=== PATIENT | female | born 1960 | race Caucasian/White ===

== ENCOUNTER 2021-05-18 11:56 | Day surgery (SDC) | payer OTHER ==
[~2021-05-18] VITALS: Ht 175.3 cm; Wt 72.7 kg
[~2021-05-18 11:56] MED LIST: DAILY VALUE1 EACH PO; FISH OIL 1,0001 EAC2 NG; GABAPENTIN600 MG PO; LIPITOR20 MG PO; MAGNESIUM30 MG; PERCOCET 5-3251 EACH PO; REMERON15 MG PO; TRIPLE HELIX CO10 GM TOP
--- NOTE | 2021-05-18 13:53 | NUR ---
05/18/21 1352 Jeanette Grajeda 1344-PATIENT ARRIVED TO PACU ON 2L NC RR EVEN LAYING LEFT LATERAL. PATIENT AWAKE DROWSY DENIES PAIN OR NAUSEA. ABDOMEN SOFT. PATIENT DOZES BACK TO SLEEP. ENCOURAGED TO PASS GAS
--- NOTE | 2021-05-28 10:35 | OR ---
[facility] [address] [place], [place] [address] Signed DATE OF OPERATION: 05/18/2021 SURGEON: Lalo Pennington MD PREOPERATIVE DIAGNOSES: 1. Family history of colon cancer (father and 3 paternal aunts and uncles). 2. Known history of diverticulosis on colonoscopy in 2009. POSTOPERATIVE DIAGNOSES: 1. Pandiverticulosis. 2. Minimal internal hemorrhoidal changes. PROCEDURE: Total colonoscopy to cecum. ANESTHESIA: Intravenous sedation; fentanyl 150 mcg and Versed 5 mg. INDICATION: This 60-year-old white woman is a patient of NIDA Cagle and known to me from the past having undergone colonoscopy in 2009, which was negative except for diverticulosis. She has a family history of colon cancer in her father as well as 3 of her father's siblings (aunts and uncles). Her children have had polyps and on her maternal side, there is history of colon cancer. It is believed as well. The patient is currently symptom free, having no bleeding, diarrhea, or constipation. She is admitted to undergo surveillance colonoscopy and understand the risks of bleeding, infection, and perforation. FINDINGS: The prep was excellent. Complete colonoscopy was undertaken to the cecum without question. Good visualization of the ileocecal valve and appendiceal orifice was noted. There were numerous diverticula scattered throughout the colon most dominantly in the sigmoid and left colon extending all the way to the right colon as well. Retroflexed view did confirm internal hemorrhoidal changes, but this was not very significant otherwise. DESCRIPTION OF PROCEDURE: The patient was brought to the endoscopy suite and placed in lateral decubitus position, given intravenous sedation to the point of slurred speech and nystagmus. Full cardiopulmonary monitoring was maintained. Digital rectal examination was normal. Electronically Signed By: LALO PENNINGTON MD 05/28/21 1035 PATIENT NAME: DASH PLUMMER OPERATIVE REPORT DATE OF : 60 REPORT #: [id number] PHYSICIAN: LALO PENNINGTON MD PCP: DIONE HDZ PA-C REPORT IS CONFIDENTIAL AND NOT TO BE RELEASED WITHOUT AUTHORIZATION [facility] [address] [place] [id number] Signed An Olympus video colonoscope was passed in the rectum and manipulated throughout the colon ultimately intubating the cecum. The ileocecal valve and appendiceal orifice were normal. Scope was withdrawn from that point. Examination was undertaken showing diverticula, scattered from the right colon through the remaining colon on withdrawal of the scope. There was no evidence of polyps, cancer, or colitis. Retroflexed view showed some low-grade internal hemorrhoidal changes. The scope was straightened, withdrawn, and removed and the patient was taken to the recovery room in good condition. CONCLUDING DIAGNOSIS: Diverticulosis throughout colon. No evidence of polyps. PLAN: Recommend repeat colonoscopy in 5 years based on family history of colon cancer in first-degree relatives. We would recommend high-fiber diet generally speaking otherwise. MD BENNIE Love/BACILIO /[id number] cc: NIDA Cagle Copies: ~ Electronically Signed By: LALO PENNINGTON MD 05/28/21 1035 PATIENT NAME: DASH PLUMMER OPERATIVE REPORT DATE OF : 60 REPORT #: [id number] PHYSICIAN: LALO PENNINGTON MD PCP: DIONE HDZ PA-C REPORT IS CONFIDENTIAL AND NOT TO BE RELEASED WITHOUT AUTHORIZATION
== END 2021-05-18 14:23 | disposition home or self-care (01) ==
LOC: DS 11:56 → OPS 11:56 → DS 14:00 → OPS 14:23
PROVIDERS: ATTEND Surgery
PROC: 0DJD8ZZ Inspection of Lower Intestinal Tract, Via Natural or Artificial Opening Endoscopic (ICD-10-PCS; principal; 2021-05-18 14:00)
DX: Z12.11 Encounter for screening for malignant neoplasm of colon (principal); K57.30 Diverticulosis of large intestine without perforation or abscess without bleeding; K64.8 Other hemorrhoids; E78.5 Hyperlipidemia, unspecified; Z87.891 Personal history of nicotine dependence; Z80.0 Family history of malignant neoplasm of digestive organs; Z86.59 Personal history of other mental and behavioral disorders; Z90.49 Acquired absence of other specified parts of digestive tract; Z78.0 Asymptomatic menopausal state
CPT/HCPCS: 99153; G0500; J2250; J2704; J3010; J7121

== ENCOUNTER 2022-01-11 12:15 | Emergency (ER) | payer OTHER ==
[~2022-01-11] VITALS: Ht 175.3 cm; Wt 72.6 kg
--- OUTSIDE RECORDS SUMMARY | 2022-01-11 12:18 | XMS ---
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 EJeremy VISIT COUNT (12 MO.) 1 VALERIY Baird TOTAL 1 NOTE: Visits indicate total known visits. ED/UCC VISIT TRACKING (12 MO.) 01/11/2022 12:16 VALERIY Deras OR TYPE: Emergency COMPLAINT: - FLANK PAIN INPATIENT VISIT TRACKING (12 MO.) No inpatient visits to display in this time frame [email or web address]
[2022-01-11] MEDS ORDERED: ONDANSETRON ODT8 MG PO (14:57)
[2022-01-11] MEDS ORDERED: HYDROCODON-ACE1 EA11 PO (14:57)
[2022-01-11] MEDS ORDERED: FLOMAX0.4 MG PO (14:57)
== END 2022-01-11 15:05 | disposition home or self-care (01) ==
LOC: ED 12:15
DX: N13.2 Hydronephrosis with renal and ureteral calculous obstruction (principal); Z88.7 Allergy status to serum and vaccine; Z79.899 Other long term (current) drug therapy
CPT/HCPCS: 36415; 74176; 80048; 81001; 85025; 96374; 96375; 99284-25; J1885; J2405; J7030

== ENCOUNTER 2022-01-17 11:11 | Day surgery (SDC) | payer OTHER ==
[~2022-01-17] VITALS: Ht 175.3 cm; Wt 86.0 kg
[~2022-01-17 11:11] MED LIST changes: +FLOMAX0.4 MG PO; +HYDROCODON-ACE1 EA11 PO; +ONDANSETRON ODT8 MG PO
--- NOTE | 2022-01-17 12:00 | NUR ---
PATIENT RESTING BACK IN BED. SUSHMA JACOBS PROVIDED PATIENT WITH HEATED BLANKETS. NO OTHER NEEDS AT THIS TIME.
--- NOTE | 2022-01-17 14:00 | NUR ---
PATIENT UP TO BATHROOM. NO OTHER NEEDS AT THIS TIME
--- NOTE | 2022-01-17 15:00 | NUR ---
PATIENT RESTING BACK IN BED READING BOOK. NOTIFIED PATIENT WOULD BE GOING BACK TO SURGERY SOON.
--- NOTE | 2022-01-17 16:28 | NUR ---
01/17/22 1628 Margie Roberson 1626- PT TO PACU IN SUPINE POSITION EYES CLOSED WITH ORAL AIRWAY IN PLACE. BREATHING EASY AND UNLABORED. SPO2 >95% ON 10L O2 VIA SIMPLE MASK.
--- NOTE | 2022-01-17 17:00 | NUR ---
PATIENT BACK TO ROOM FROM PACU, REPORT FROM ADAMARIS JACOBS. PATIENT UP TO BATHROOM VOIDED 250 ML OF URINE. PATIENT BACK TO ROOM. STRING INTACT FOR STENT. PATIENT REPORTS PAIN 0/10 ON PAIN SCALE. DISCUSSED CRITERIA WITH PATIENT, AND . PROVIDED SCRIPT TO TO FILL. NO OTHER NEEDS AT THIS TIME.
--- NOTE | 2022-01-17 18:00 | NUR ---
PROVIDED DISCHARGE EDUCATION TO PATIENT, ANSWERED QUESTIONS AND CONCERNS. AT BEDSIDE. ANSWERED HIS QUESTIONS AND CONCERNS. PROVIDED PATIENT RIDE OUT TO CAR. STENT IS IN PLACE. PATIENT VERBALIZED UNDERSTANDING OF SELF REMOVING. PATIENT TRANSFERED INTO CAR WELL.
--- NOTE | 2022-01-18 13:03 | OR ---
[facility] [address] [place], [place] [address] Signed DATE OF OPERATION: 01/17/2022 SURGEON: Simone Weiner MD PREOPERATIVE DIAGNOSES: 1. Acutely obstructing 6 mm left proximal ureteral calculus. 2. Two small left renal calculi, each measuring 2 mm. POSTOPERATIVE DIAGNOSES: 1. History of 6 mm proximal left ureteral calculus, status post successful trial of passage. 2. One 2 mm left renal calculus. NAMES OF PROCEDURES: 1. Diagnostic cystoscopy with left retrograde pyelogram. 2. Left flexible nephroureteroscopy with basket extraction of 2 mm left renal calculus. 3. Insertion of an indwelling left ureteral stent. 4. Urethral dilation using straight sounds from 14-Martiniquais to 26-Martiniquais. ANESTHESIA: General. ESTIMATED BLOOD LOSS: None. COMPLICATIONS: None. SPECIMEN: Single stone sent to the lab for stone analysis. DRAINS: A 6 x 26 cm double-J ureteral stent inserted into the left collecting system. INDICATIONS FOR PROCEDURE: Ms. Plummer is a very pleasant 61-year-old female, who presented to my clinic late last week with a 2 to 3-day history of severe left-sided flank pain and nausea and vomiting. She had also noticed a small amount of blood in her urine. She has a prior history of nephrolithiasis and had undergone ureteroscopic stone extraction in the past. Also, of note, she was known to have passed a 1.2 cm stone on her own in the past. Due to the Electronically Signed By: SIMONE WEINER MD 01/18/22 1303 PATIENT NAME: DASH PLUMMER OPERATIVE REPORT DATE OF : 60 REPORT #: [id number] PHYSICIAN: SIMONE WEINER MD PCP: DIONE HDZ PA-C REPORT IS CONFIDENTIAL AND NOT TO BE RELEASED WITHOUT AUTHORIZATION [facility] [address] [place] [id number] Signed acutely obstructing nature of the stone and the patient's pain, she agreed to undergo elective ureteroscopic extraction of her obstructing 6 mm left proximal ureteral calculus. OPERATIVE FINDINGS: 1. On cystoscopy, there was no evidence of any suspicious masses, lesions, or stones. Bilateral ureteral orifices are in normal anatomic location. Of note, the left ureteral orifice appears to be mildly erythematous, which could be consistent with recent passage of a stone. 2. Left retrograde pyelogram revealed an extremely wide and openly patent ureter with no evidence of any filling defects along the entire left ureter. 3. Diagnostic left semi-rigid ureteroscopy reveals no evidence of any calculi within the entire length of the left ureter. Flexible nephroscopy was performed, which revealed only one small 2 mm stone in the mid pole of the left kidney. This was extracted using a Zero tip basket without difficulty. There was no need for lithotripsy for extraction of the stone. 4. At the end of the procedure, a 6 x 26 cm double-J ureteral stent was inserted into the left collecting system with a string attached. This stent will need to be removed by the patient using the string attached in approximately 3 to 4 days. DESCRIPTION OF PROCEDURE: After informed consent was obtained, the patient was taken back to the operating room. [facility] room table, where general anesthesia was induced. She was placed in the dorsal lithotomy position and genitalia prepped and draped in standard sterile fashion. Using a 30-degree lens on a 22.5-Martiniquais introducer, rigid cystoscope was inserted through the urethra into her bladder under direct visualization. Panendoscopic views of the bladder were then obtained. Prior to this, her urethral meatus was noted to be very mildly stenotic, so her urethra was dilated from 14-Martiniquais to 26-Martiniquais using straight [place] sounds without difficulty. Once inside the bladder, a complete diagnostic cystoscopy was performed. Please see above findings. Attention was turned to the left ureteral orifice. A cone-tipped catheter was advanced to the level of the left ureteral orifice and a left retrograde pyelogram was performed. Please see above findings. Again, I noted that the ureter itself was naturally very large and could be easily passed, not only a 6 mm stone, but upwards of a cm stone without much difficulty. Again, I did not see any evidence of filling defects within the entire length of the left ureter. I then removed the cone-tipped catheter and cystoscope and advanced a semi-rigid ureteroscope. I was very easily able to pass the ureteroscope into the entire length of the left ureter and again I saw no evidence of any obstructing stone in the left ureter. I removed the semi-rigid ureteroscope after passing a Sensor wire through the ureteroscope and into the left ureter. I removed the ureteroscope, leaving the Sensor wire behind. Over the wire, I passed a 13/15 ureteral access sheath into the left ureter. Retrograde pyelography was Electronically Signed By: SIMONE WEINER MD 01/18/22 1303 PATIENT NAME: DASH PLUMMER OPERATIVE REPORT DATE OF : 60 REPORT #: [id number] PHYSICIAN: SIMONE WEINER MD PCP: DIONE HDZ PA-C REPORT IS CONFIDENTIAL AND NOT TO BE RELEASED WITHOUT AUTHORIZATION [place] [id number] [facility] [place], [place] [address] Signed performed to confirm adequate placement of the sheath. I passed a digital flexible ureteroscope through the sheath and into the patient's left kidney and performed a thorough left nephroscopy. I was only able to find one solitary 2 mm stone in the mid pole of the left kidney. The stone was removed in toto using a Zero tip basket without difficulty. I then reinserted a Sensor wire through the sheath and up into the left collecting system. I removed the sheath, leaving the Sensor wire behind. Over the Sensor wire, I passed a 6 x 26 cm double-J ureteral stent into the left collecting system. The stent was left with a string attached. Once the wire was pulled, an adequate proximal coil was noted within the left renal pelvis. The patient's bladder was then drained and the cystoscope was removed, leaving the stent in good position within the left collecting system. The procedure was then terminated. The patient tolerated the procedure well without any complication. She will now be transferred to the postanesthesia care unit in stable condition. DISPOSITION: I discussed the details of today's procedure with the patient's and answered all of his questions. In short, the patient is built to pass kidney stones. She has a very large bilateral ureters; however, I was only able to thoroughly evaluate the left side today. She had successfully passed a 6 mm stone on her own. However, we were able to retrieve the 2 mm stone and sent it for stone analysis. She will be sent home today with [place] 7.5/325 one tablet p.o. q.6 hours p.r.n. pain, dispense #20, along with Cipro 500 mg p.o. b.i.d. for 7 days. She has been instructed to remove her indwelling ureteral stent using the string attached in 3 to 4 days. She will be scheduled return to clinic in 6 to 8 weeks to discuss the results of her stone analysis. MD CONOR Agrawal/MODL /[id number] Copies: ~ Electronically Signed By: SIMONE WEINER MD 01/18/22 1303 PATIENT NAME: DASH PLUMMER OPERATIVE REPORT DATE OF : 60 REPORT #: [id number] PHYSICIAN: SIMONE WEINER MD PCP: DIONE HDZ PA-C REPORT IS CONFIDENTIAL AND NOT TO BE RELEASED WITHOUT AUTHORIZATION
== END 2022-01-17 18:00 | disposition home or self-care (01) ==
LOC: DS 11:11
PROVIDERS: ATTEND Urology
PROC: 0T778DZ Dilation of Left Ureter with Intraluminal Device, Via Natural or Artificial Opening Endoscopic (ICD-10-PCS; 2022-01-17)
PROC: 0TC48ZZ Extirpation of Matter from Left Kidney Pelvis, Via Natural or Artificial Opening Endoscopic (ICD-10-PCS; principal; 2022-01-17 14:10)
DX: N13.2 Hydronephrosis with renal and ureteral calculous obstruction (principal); N35.92 Unspecified urethral stricture, female; Z87.442 Personal history of urinary calculi; Z88.7 Allergy status to serum and vaccine
CPT/HCPCS: 74420; 82365; C1769; C2617; J0690; J1100; J1885; J2250; J2405; J2704; J2765; J3010; J7121; Q9967